=== PATIENT | female | born 1985 | race Caucasian/White ===

== ENCOUNTER → 2017-09-27 | Outpatient (CLI) | payer BC | END | disposition home or self-care (01) | LOC: LABWHC1 14:18 | PROVIDERS: ATTEND Obstetrics & Gynecology Maternal & Fetal Medicine | DX: O09.291 Supervision of pregnancy with other poor reproductive or obstetric history, first trimester (principal); Z3A.00 Weeks of gestation of pregnancy not specified | CPT/HCPCS: 36415; 82105; 82677; 84702; 86336 ==

== ENCOUNTER → 2017-12-23 | Outpatient (CLI) | payer BC ==
[2017-12-23 18:42] LABS: Hemoglobin A1C 4.7 % (4.0-6.0)
== END | disposition home or self-care (01) ==
LOC: LABWHC1 09:39
PROVIDERS: ATTEND Obstetrics & Gynecology Maternal & Fetal Medicine
DX: O24.410 Gestational diabetes mellitus in pregnancy, diet controlled (principal)
CPT/HCPCS: 36415; 82947; 83036

== ENCOUNTER 2018-03-06 05:28 | Inpatient (IN) | payer BC ==
--- NOTE | 2018-03-05 16:54 | P.HPOB ---
History of Present Illness H&P Date: 03/05/18 Chief Complaint: Repeat with tubal ligation This is a 32-year-old female 2 para 1 with an estimated date of confinement of 03/10/2018, estimated gestational age of 39-4/7 weeks, who presents to labor and delivery for scheduled repeat section with bilateral partial salpingectomy for family planning. Her course has been complicated by gestational diabetes controlled with diet. She does have a history of severe preeclampsia with her first and did deliver at 31 weeks. Her blood pressures have been normal throughout this . She admits to good movement and complaints of irregular contractions. labs: Hepatitis B surface antigen-negative RPR-nonreactive Rubella-immune Blood type-A+ Antibody screen-negative Hemoglobin-14.4 Random glucose-93 Integrated screen-negative Obstetrical ultrasound-normal anatomy One hour Glucola-177 Three-hour Glucola-abnormal Group B streptococcus-negative Obstetrical history: . History of 1 delivery at 31 weeks due to severe preeclampsia. Gynecologic history: No history of sexual transmitted diseases. Social history: She is . 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 Review of Systems Constitutional: Denies chills, Denies fever Eyes: denies blurred vision, denies pain Ears, nose, mouth and throat: Denies headache, Denies sore throat Cardiovascular: Denies chest pain, Denies shortness of breath Respiratory: Denies cough Gastrointestinal: Denies abdominal pain, Denies diarrhea, Denies nausea, Denies vomiting Genitourinary: Reports pelvic pain, Reports Musculoskeletal: Reports low back pain Integumentary: Denies pruritus, Denies rash Neurological: Denies numbness, Denies weakness Past Medical History Additional Past Medical History / Comment(s): Gestational diabetes. CELIAC DISEASE. PRE AND POST ECLAMPSIA WITH LAST History of Any Multi-Drug Resistant Organisms: None Reported Past Surgical History: Section, Cholecystectomy Additional Past Surgical History / Comment(s): [place] teeth Past Anesthesia/Blood Transfusion Reactions: Postoperative Nausea & Vomiting ( PONV) Past Psychological History: No Psychological Hx Reported Smoking Status: Never smoker Past Alcohol Use History: None Reported Past Drug Use History: None Reported - Past Family History Father Family Medical History: Diabetes Mellitus Medications and Allergies Home Medications Medication Instructions Recorded Confirmed Type Pnv,Calcium 72/Iron/Folic Acid 1 each PO DAILY 11/04/15 03/02/18 History [ Plus Tablet] Aspirin EC [Ecotrin Low Dose] 81 mg PO DAILY 03/02/18 03/02/18 History Allergies Allergy/AdvReac Type Severity Reaction Status Date / Time gluten Allergy CELIAC Verified 03/02/18 14:12 Sulfa (Sulfonamide Allergy Rash/Hives Verified 03/02/18 14:11 Antibiotics) wheat Allergy CELIAC Verified 03/02/18 14:12 Exam Osteopathic Statement: *. No significant issues noted on an osteopathic structural exam other than those noted in the History and Physical/Consult. HEENT: Within normal limits Heart: Regular rate and rhythm Lungs: Clear to auscultation bilaterally Abdomen: Cervix: 1 cm/60%/-3 heart tones: 140s by Doppler Extremities: Negative Homans Assessment and Plan (1) 39 weeks gestation of Status: Acute Code(s): Z3A.39 - 39 WEEKS GESTATION OF SNOMED Code( s): 92279862 (2) Family planning Status: Acute Code(s): Z30.09 - ENCOUNTER FOR OT GENERAL CNSL AND ADVICE ON CONTRACEPTION SNOMED Code(s): 537816085 Plan: Proceed with repeat section with bilateral partial salpingectomy. I have discussed the risks, benefits, and alternative therapies for the above- mentioned procedure and for both sedation/anesthesia as well as necessary blood products administration, if indicated, as they pertain to this patient. The patient has indicated her understanding and acceptance of the risks and procedures discussed.
[2018-03-06] MEDS ORDERED: LIDOCAINE 1% 20 ML VIAL (10MG/ML) FOR IV START INTRADERMA PRN (05:36)
[2018-03-06] MEDS ORDERED: LACTATED RINGERS 1,000 ML IV ONE (05:36)
[2018-03-06] MEDS ORDERED: ceFAZolin IN SWFI 2 GM/20 ML SYRINGE IVP ONE (05:36)
[2018-03-06] MEDS ORDERED: CITRIC ACID-SODIUM CITRATE 15 ML CUP PO ONE (05:36)
[2018-03-06] MEDS ORDERED: LACTATED RINGERS 1,000 ML IV SCH (05:36)
[2018-03-06 05:43] LABS: Glucose,Whole Blood 89 mg/dL (75-99)
[2018-03-06 05:50] LABS: Basophils % (A) 0 %; Eosinophils # (A) 0.1 k/uL (0-0.7); Eosinophils % (A) 1 %; HCT 42.6 % (34.0-46.0); HGB 14.5 gm/dL (11.4-16.0); Lymphocytes # (A) 2.1 k/uL (1.0-4.8); Lymphocytes % (A) 18 %; MCH 29.7 pg (25.0-35.0); MCV 87.4 fL (80.0-100.0); Mean Platelet Volume 7.1; Monocytes # (A) 0.5 k/uL (0-1.0); Monocytes % (A) 4 %; Neutrophils # (A) 9.2 k/uL (1.3-7.7); Neutrophils % (A) 77 %; Platelet Count 195 k/uL (150-450); RBC 4.87 m/uL (3.80-5.40); RDW 14.8 % (11.5-15.5)
[2018-03-06 05:56] VITALS: BMI 36.6
[2018-03-06] MEDS ORDERED: ePHEDrine SULFATE/0.9% NACL/PF 50 MG/5 ML SYRINGE IV ONE (06:57)
[2018-03-06] MEDS ORDERED: MORPHINE SULFATE (PF) 0.3 MG/0.3 ML SYR ONE (06:57)
[2018-03-06] MEDS ORDERED: KETOROLAC 30 MG/ML 1 ML VIAL ONE (06:57)
[2018-03-06] MEDS ORDERED: DEXAMETHASONE SOD PHOS (MDV) 100 MG/10 ML VIAL ONE (06:57)
[2018-03-06] MEDS ORDERED: OXYTOCIN 10 UNIT/ML 1 ML VIAL ONE (06:57)
[2018-03-06] MEDS ORDERED: NALBUPHINE 10 MG/ML VIAL (10ML MDV) ONE (06:57)
--- NOTE | 2018-03-06 07:49 | P.OP ---
Date of Procedure: 03/06/18 Preoperative Diagnosis: 1. Intrauterine at 39-2/7 weeks 2. Previous section 3. Family planning 4. Gestational [id number]. Postoperative Diagnosis: Same Procedure(s) Performed: Repeat low transverse section Bilateral partial salpingectomy Anesthesia: spinal (Duramorph) Surgeon: Juanis Posada Internal Sales Engineer #1: Peterson De Jesus Estimated Blood Loss (ml): 600 Pathology: other (Placenta, portions of right and left fallopian tubes) Condition: stable Disposition: floor Indications for Procedure: This is a 32-year-old female 2 para 1 at 39-3/7 weeks who presents for repeat section with bilateral partial salpingectomy. I have discussed the risks, benefits, and alternative therapies for the above- mentioned procedure and for both sedation/anesthesia as well as necessary blood products administration, if indicated, as they pertain to this patient. The patient has indicated her understanding and acceptance of the risks and procedures discussed. Operative Findings: A viable male infant is noted in the vertex presentation with scores of 8 at 1 minute and 9 at 5 minutes and weight of 8 lbs. 4 oz. Normal uterus tubes and ovaries are noted. An omental adhesion is noted to the anterior abdominal wall in the midline near the umbilicus. Description of Procedure: The patient is taken to the operating room where she is placed in the dorsal supine position with leftward tilt after spinal Duramorph anesthesia is given. She is prepped and draped in the normal sterile fashion. Skin was tested and found to be adequately anesthetized. A Pfannenstiel skin incision was made with a scalpel through the previous laparotomy scar. A second knife was used to carry the incision down to the underlying layer of fascia. The fascia was nicked in the midline with a scalpel and then extended laterally bilaterally with Auguste scissors. The anterior lip of the fascia was grasped with 2 Aruna clamps and then dissected off the underlying rectus muscle in the midline with Auguste scissors. The inferior aspect of the fascial incision was grasped with 2 Aruna clamps and dissected off the underlying rectus muscle and the midline with Auguste scissors. Next the peritoneum layer was tented up with 2 hemostats and then entered sharply with the scalpel. The incision is extended superiorly and inferiorly with Metzenbaum scissors. Next a DeLee retractor is placed. The vesicouterine peritoneum is entered sharply with Metzenbaum scissors and extended laterally bilaterally with Metzenbaum scissors and then the bladder flap is pushed inferiorly. The lower uterine segment is incised in transverse fashion with the scalpel and then bluntly entered with a hemostat. Thin meconium fluid is noted. The incision was then extended laterally bilaterally with 2 fingers. Next the infant's head is delivered through the incision. Nose and mouth are bulb suctioned. The remainder of the is easily delivered and placed on mother's abdomen. Cord is clamped and cut. Infant is taken to warmer by nursing staff. Uterine fundus is gently massaged and placenta is delivered manually. Uterus is exteriorized and cleared of all clots and debris. Uterine incision is closed with 0 Vicryl suture in a running locked fashion. A second layer of 0 Vicryl suture is used in a running fashion for hemostasis. Next attention is turned to the tubes. The right fallopian tube is grasped in the midportion with a hemostat. The mesosalpinx is entered with Bovie cautery. 0 Vicryl suture is tied 2 times around both the proximal and distal portions of the tube. The knuckle of tube was then removed with Metzenbaum scissors. The ends of the tube were then cauterized with Bovie cautery. Excellent hemostasis is noted. The same procedure is carried out on the left fallopian tube. Once adequate hemostasis as assured, the vesicouterine peritoneum is reapproximated with 2-0 Vicryl suture in a running fashion. Posterior cul-de-sac is suctioned of all clots and debris. Uterus is returned to the abdomen. Incision is noted to be hemostatic. Both tubal sites are noted to be hemostatic. There is noted to be an omental adhesion to the anterior abdominal wall. Peritoneal layer is closed with 0 Vicryl suture in a running fashion. Muscle layer is reapproximated with 0 Vicryl suture in interrupted fashion. Fascia layer is then closed with 0 PDS suture with 2 sutures meeting in the midline and the knots buried in either side and in the midline. The subcutaneous tissue was then closed with 2-0 Vicryl suture. Skin layer was then closed with tarsha. All sponge and needle counts are correct. The patient is taken to recovery room in stable condition.
[2018-03-06] MEDS ORDERED: OXYTOCIN 20 UNITS/1000 ML NS 1,000 ML IV SCH (07:58)
[2018-03-06] MEDS ORDERED: diphenhydrAMINE 50 MG CAP PO PRN (07:58)
[2018-03-06] MEDS ORDERED: ONDANSETRON 4 MG/2 ML VIAL IVP PRN (07:58)
[2018-03-06] MEDS ORDERED: ACETAMINOPHEN TAB 325 MG TAB PO PRN (07:58)
[2018-03-06] MEDS ORDERED: METOCLOPRAMIDE 5 MG/ML 2 ML VIAL IVP PRN (07:58)
[2018-03-06] MEDS ORDERED: ZOLPIDEM 5 MG TAB PO PRN (07:58)
[2018-03-06] MEDS ORDERED: diphenhydrAMINE 25 MG CAP PO PRN (07:58)
[2018-03-06] MEDS ORDERED: MORPHINE SULFATE 4 MG/ML SYRINGE IVP PRN (07:58)
[2018-03-06] MEDS ORDERED: NALOXONE 0.4 MG/ML 1 ML VIAL IV PRN ×2 (07:58)
[2018-03-06] MEDS ORDERED: diphenhydrAMINE 50 MG/ML 1 ML VIAL IVP PRN (07:58)
[2018-03-06] MEDS ORDERED: HYDROcodone/APAP 5-325MG 1 EACH TAB PO PRN (07:58)
[2018-03-06] MEDS: SENNOSIDES-DOCUSATE SODIUM 1 EACH TAB PO SCH (09:05)
[2018-03-06] MEDS: LACTATED RINGERS 1,000 ML IV SCH ×2 (09:06→11:40)
[2018-03-06] MEDS: diphenhydrAMINE 50 MG/ML 1 ML VIAL IVP PRN ×2 (09:54→16:58)
[2018-03-06 13:14] LABS: Hemoglobin A1C 5.3 % (4.0-6.0)
[2018-03-06] MEDS: KETOROLAC 30 MG/ML 1 ML VIAL IVP PRN (13:33)
[2018-03-07] MEDS: KETOROLAC 30 MG/ML 1 ML VIAL IVP PRN ×2 (00:05→07:56)
[2018-03-07] MEDS: LACTATED RINGERS 1,000 ML IV SCH ×2 (01:06→10:15)
[2018-03-07] MEDS: SENNOSIDES-DOCUSATE SODIUM 1 EACH TAB PO SCH ×3 (01:06→20:25)
--- NOTE | 2018-03-07 06:22 | P.PN ---
Progress Note - Text Progress Note Date: 03/07/18 32-year-old female status post section with Duramorph spinal. Postop day #1. Patient has no complaints, no pruritus, and bleeding well, tolerating diet. Patient has no motor/sensory deficits
[2018-03-07 07:42] LABS: Basophils % (A) 0 %; Eosinophils % (A) 0 %; HCT 37.2 % (34.0-46.0); HGB 12.4 gm/dL (11.4-16.0); Lymphocytes # (A) 1.8 k/uL (1.0-4.8); Lymphocytes % (A) 15 %; MCH 29.6 pg (25.0-35.0); MCHC 33.2 g/dL (31.0-37.0); MCV 89.1 fL (80.0-100.0); Mean Platelet Volume 7.5; Monocytes # (A) 0.5 k/uL (0-1.0); Monocytes % (A) 4 %; Neutrophils # (A) 10.1 k/uL (1.3-7.7); Neutrophils % (A) 80 %; Platelet Count 181 k/uL (150-450); RBC 4.18 m/uL (3.80-5.40); RDW 14.8 % (11.5-15.5); WBC 12.6 k/uL (3.8-10.6)
--- NOTE | 2018-03-07 08:20 | P.PNOBGPC ---
Subjective - Subjective Principal diagnosis: Status post repeat section with tubal postoperative day #1 Interval history: Patient is doing okay. She is ambulating. She is passing some flatus but no bowel movement yet. Pain is been fairly well-controlled with Duramorph and Toradol. She is working on breast-feeding but having some difficulty. Patient reports: Reports appetite normal, Reports voiding normally, Reports pain well controlled, Reports ambulating normally : doing well Objective - Vital Signs Latest vital signs: Vital Signs Temp Pulse Resp BP Pulse Ox 03/07/18 06:00 16 03/07/18 04:00 98.3 F 70 16 125/72 97 03/07/18 02:00 16 03/07/18 00:00 98.2 F 65 16 137/74 100 03/06/18 22:00 16 100 03/06/18 20:00 98.5 F 68 16 134/79 98 03/06/18 18:00 16 03/06/18 17:04 98.2 F 84 16 139/85 99 03/06/18 16:00 16 99 03/06/18 14:00 16 98 03/06/18 12:12 21 L 03/06/18 12:00 99 F 70 16 131/71 97 03/06/18 10:58 16 98 03/06/18 09:47 96.9 F L 74 16 146/70 99 03/06/18 09:17 96.9 F L 100 16 144/87 99 03/06/18 08:58 14 97 03/06/18 08:47 65 16 137/72 97 03/06/18 08:32 82 16 126/73 98 Intake and Output 03/06/18 03/07/18 03/07/18 22:59 06:59 14:59 Output Total 650 700 Balance -650 -700 Output: Urine 650 700 Uretheral (Schmidt) 450 Other: # Voids 1 2 - Exam Extremities: Present: normal. Absent: tenderness Abdomen: Present: normal appearance, soft (Faint bowel sounds 4). Absent: distention, tenderness Incision: Present: normal, dry, intact. Absent: erythematous Uterus: Present: normal, firm. Absent: tenderness - Labs Labs: Abnormal Lab Results - Last 24 Hours (Table) 03/07/18 Range/Units 07:24 WBC 12.6 H (3.8-10.6) k/uL Neutrophils # 10.1 H (1.3-7.7) k/uL Assessment and Plan Assessment: Impression is status post repeat section with tubal ligation postoperative day #1. (1) 39 weeks gestation of Current Visit: No Status: Acute Code(s): Z3A.39 - 39 WEEKS GESTATION OF SNOMED Code(s): 61176445 (2) Family planning Current Visit: No Status: Acute Code(s): Z30.09 - ENCOUNTER FOR OTH GENERAL CNSL AND ADVICE ON CONTRACEPTION SNOMED Code(s): 659070777 Plan: Plan is to continue with postoperative care today. Will slowly advance diet as tolerated. Patient encouraged to ambulate. Will switch to oral pain medications today.
[2018-03-07] MEDS: IBUPROFEN 600 MG TAB PO PRN (14:33)
[2018-03-07] MEDS: HYDROcodone/APAP 7.5-325MG 1 EACH TAB PO PRN (16:38)
[2018-03-08] MEDS: IBUPROFEN 600 MG TAB PO PRN ×3 (02:49→14:18)
[2018-03-08] MEDS: SENNOSIDES-DOCUSATE SODIUM 1 EACH TAB PO SCH ×2 (07:44→20:17)
--- NOTE | 2018-03-08 08:56 | P.DS ---
Providers Date of admission: 03/06/18 05:28 Expected date of discharge: 03/08/18 Attending physician: Juanis Posada Primary care physician: Juanis Posada - Discharge Diagnosis(es) (1) 39 weeks gestation of Current Visit: No Status: Acute (2) Family planning Current Visit: No Status: Acute Hospital Course: This is a 32-year-old female 2 para 1 at 39-3/7 weeks who presented for scheduled repeat section. She underwent repeat low transverse section with bilateral partial salpingectomy on 03/06/2018 and delivered a viable male infant in the vertex presentation with scores of 8 at 1 minute and 9 at 5 minutes and infant weight of 8 lbs. 4 oz. Her course has been essentially uncomplicated. She is working on breast- feeding. She is frustrated that her baby is not latching well and has been pumping her breastmilk to feed in a bottle. Her pain is fairly well controlled with ibuprofen and [place]. Lochia is decreasing. She is passing flatus but no bowel movement yet. She thinks she would like to go home later today but will stay over tonight if she doesn't feel well later today. Vital signs are stable. Abdomen is soft with positive bowel sounds 4. Incision is clean dry and intact. Extremities show negative Homans. Impression is status post repeat section with bilateral partial salpingectomy postoperative day # 2. Plan is to potentially discharge home later today. Routine and postoperative instructions are given. She will be given a prescription for ibuprofen and [place] along with a prescription for a breast pump. She was counseled regarding narcotic use and consent form was signed. She is advised to follow up in the office in 1 week for a postoperative check. Chauncey will be removed and Steri-Strips placed prior to discharge. She is advised to call the office if she has any further questions or concerns prior to her appointment time. Procedures: Repeat low transverse section with bilateral partial salpingectomy on 03/06/2018 Patient Condition at Discharge: Stable Plan - Discharge Summary Discharge Rx Participant: No New Discharge Prescriptions: New HYDROcodone/APAP 5-325MG [[place] 5-325] 1 each PO Q4HR PRN #42 tab PRN Reason: Moderate Pain Ibuprofen [Motrin] 600 mg PO Q6HR PRN #60 tab PRN Reason: Mild Pain Or Fever >= 100.5 Continue Pnv,Calcium 72/Iron/Folic Acid [ Plus Tablet] 1 each PO DAILY Discharge Medication List Pnv,Calcium 72/Iron/Folic Acid [ Plus Tablet] 1 each PO DAILY 11/04/15 [ History] HYDROcodone/APAP 5-325MG [[place] 5-325] 1 each PO Q4HR PRN #42 tab 03/08/18 [Rx] Ibuprofen [Motrin] 600 mg PO Q6HR PRN #60 tab 03/08/18 [Rx] Follow up Appointment(s)/Referral(s): Juanis Posada DO [Primary Care Provider] - 1 Week Activity/Diet/Wound Care/Special Instructions: Instructions 1. Do not begin any exercise program for 3 weeks. 2. Do not resume sexual relations for 3 weeks or longer if uncomfortable. 3. You may take tub baths or showers at any time. 4. You may use tampons if desired after 3 weeks. 5. Keep the area of episiotomy (stitches) clean and dry. 6. If you are not nursing, wear a good fitting, supportive bra during the day and limit fluid intake for at least 1 week to prevent breast engorgement. 7. Call the office, [phone], within the next week to make appointment for your 6 week checkup if it has not already been made. 8. Report any of the following occurrences to the doctor promptly: a. Heavy, excessive bleeding b. Chills, fever c. Burning or frequency of urination d. Pain or redness and breasts if nursing e. Increasing pain or swelling in episiotomy (stitches). In addition to the above instructions, the following additional should be followed: 1. No heavy lifting or straining (exercising) until after 6 week checkup. 2. Keep abdominal incision clean and dry: You may wear a dressing if more comfortable. 3. Make office appointment for 10 days after going home or as instructed by her doctor. Discharge Disposition: HOME SELF-CARE
[2018-03-08] MEDS: HYDROcodone/APAP 7.5-325MG 1 EACH TAB PO PRN (22:47)
[2018-03-09 03:05] VITALS: PULSE 84; TEMP 97.8
[2018-03-09] MEDS: SENNOSIDES-DOCUSATE SODIUM 1 EACH TAB PO SCH (08:08)
[2018-03-09] MEDS: IBUPROFEN 600 MG TAB PO PRN (08:09)
[2018-03-09 10:39] VITALS: BP 131/79; RESP 18
== END 2018-03-09 10:20 | disposition home or self-care (01) | DRG 766 ==
LOC: 4FBP 05:28
PROVIDERS: ADMIT Obstetrics & Gynecology; ATTEND Obstetrics & Gynecology
PROC: 0UB70ZZ Excision of Bilateral Fallopian Tubes, Open Approach (ICD-10-PCS; principal; 2018-03-06 07:12)
PROC: 10D00Z1 Extraction of Products of Conception, Low, Open Approach (ICD-10-PCS; principal; 2018-03-06 07:12)
DX: O34.211 Maternal care for low transverse scar from previous cesarean delivery (principal); Z37.0 Single live birth; O24.420 Gestational diabetes mellitus in childbirth, diet controlled; Z90.49 Acquired absence of other specified parts of digestive tract; Z83.3 Family history of diabetes mellitus; Z3A.39 39 weeks gestation of pregnancy; Z79.82 Long term (current) use of aspirin; Z88.1 Allergy status to other antibiotic agents; Z88.2 Allergy status to sulfonamides; Z91.018 Allergy to other foods; Z30.2 Encounter for sterilization
CPT/HCPCS: 83036; 85025; 86850; 86900; 86901; 88302; 88307; 94760

== ENCOUNTER 2018-03-20 15:37 | Emergency (ER) | payer BC ==
[2018-03-20 16:16] VITALS: RESP 18
[2018-03-20] MEDS ORDERED: ACETAMINOPHEN IV (For NPO) 1,000 MG in EMPTY BAG 1 BAG IVPB STA (16:30)
[2018-03-20] MEDS ORDERED: SODIUM CHLORIDE 0.9% 1,000 ML IV STA (16:30)
--- NOTE | 2018-03-20 16:34 | ED ---
General Adult HPI - General Chief complaint: Fever Stated complaint: high heart rate-sent by [employer] Word Now Time Seen by Provider: 03/20/18 16:26 Source: patient, RN notes reviewed Mode of arrival: ambulatory Limitations: no limitations - History of Present Illness Initial comments: Patient's a 32-year-old female who presents emergency room today with chief complaint mastitis to the left breast. Patient states that symptoms started tonight. States she's had some local tenderness to the area. Patient does admit to headache. She states she went to urgent care earlier today and was advised come here to emergency room for further evaluation. Patient currently denies any other complaints. Patient does admit that she ibuprofen approximately for half hours ago. Patient denies any recent shortness of breath , chest pain, back pain, abdominal pain, nausea or vomiting, numbness or tingling, visual changes, or any other complaints. - Related Data Home Medications Medication Instructions Recorded Confirmed Pnv,Calcium 72/Iron/Folic Acid 1 each PO DAILY 11/04/15 03/06/18 [ Plus Tablet] Previous Rx's Medication Instructions Recorded HYDROcodone/APAP 5-325MG [[place] 1 each PO Q4HR PRN #42 tab 03/08/18 5-325] Ibuprofen [Motrin] 600 mg PO Q6HR PRN #60 tab 03/08/18 Acetaminophen Tab [Tylenol] 1,000 mg PO TID 5 Days tablet 03/20/18 Cephalexin [Keflex] 500 mg PO Q12HR 10 Days cap 03/20/18 Ibuprofen [Motrin] 600 mg PO Q6HR PRN #40 day 03/20/18 Allergies Allergy/AdvReac Type Severity Reaction Status Date / Time gluten Allergy CELIAC Verified 03/20/18 16:17 Sulfa (Sulfonamide Allergy Rash/Hives Verified 03/20/18 16:17 Antibiotics) wheat Allergy CELIAC Verified 03/20/18 16:17 Review of Systems ROS Statement: Those systems with pertinent positive or pertinent negative responses have been documented in the HPI. ROS Other: All systems not noted in ROS Statement are negative. Past Medical History Additional Past Medical History / Comment(s): Gestational diabetes. CELIAC DISEASE. PRE AND POST ECLAMPSIA WITH LAST History of Any Multi-Drug Resistant Organisms: None Reported Past Surgical History: Section, Cholecystectomy Additional Past Surgical History / Comment(s): [place] teeth Past Anesthesia/Blood Transfusion Reactions: Postoperative Nausea & Vomiting ( PONV) Past Psychological History: No Psychological Hx Reported Smoking Status: Never smoker Past Alcohol Use History: None Reported Past Drug Use History: None Reported - Past Family History Father Family Medical History: Diabetes Mellitus General Exam - General Exam Comments Initial Comments: General: The patient is awake and alert, in no distress, and does not appear acutely ill. Eye: Pupils are equal, round and reactive to light, extra-ocular movements are intact. No nystagmus. There is normal conjunctiva bilaterally. No signs of icterus. Ears, nose, mouth and throat: There are moist mucous membranes and no oral lesions. Neck: The neck is supple, there is no tenderness or JVD. Cardiovascular: There is a regular rate and rhythm. No murmur, rub or gallop is appreciated. Respiratory: Lungs are clear to auscultation, respirations are non-labored, breath sounds are equal. No wheezes, stridor, rales, or rhonchi. Musculoskeletal: Normal ROM, no tenderness. Strength 5/5. Sensation intact. Pulses equal bilaterally 2+. Neurological: A&O x 3. CN II-XII intact, There are no obvious motor or sensory deficits. Coordination appears grossly intact. Speech is normal. Skin: Skin is warm and dry and no rashes or lesions are noted. Psychiatric: Cooperative, appropriate mood & affect, normal judgment. 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 Mild redness and swelling to the left breast. Limitations: no limitations Course Vital Signs 03/20/18 03/20/18 03/20/18 16:13 16:54 17:26 Temperature 103 F H 101.8 F H Pulse Rate 136 H 120 H 115 H Respiratory 18 18 Rate Blood Pressure 132/81 139/90 O2 Sat by Pulse 98 98 Oximetry 03/20/18 17:47 Temperature Pulse Rate 109 H Respiratory 18 Rate Blood Pressure 122/76 O2 Sat by Pulse 98 Oximetry Medical Decision Making - Medical Decision Making Patient's labs been reviewed does show 14,000 white count. Patient did have a temperature 100.3F here in emergency room and was tachycardic. Patient's fever has improved here in the emergency room along with a heart rate. Patient is resting comfortably and states she is feeling better. Patient does have mastitis on clinical exam. She has had this once in the past with a previous . Patient feels comfortable being discharged and continuing outpatient antibiotics. Has been given dose of Rocephin here in the emergency room. She is advised close follow-up over the next 2 days returning if any symptoms increase or worsen. Advised continue Tylenol/ibuprofen for fever control. Will be continued on Keflex at home for infection. - Lab Data Result diagrams: 03/20/18 16:51 03/20/18 16:51 Lab Results 03/20/18 03/20/18 03/20/18 Range/Units 16:51 16:51 16:51 WBC 14.1 H (3.8-10.6) k/uL RBC 4.75 (3.80-5.40) m/uL Hgb 13.7 (11.4-16.0) gm/dL Hct 42.2 (34.0-46.0) % MCV 88.9 (80.0-100.0) fL MCH 28.9 (25.0-35.0) pg MCHC 32.5 (31.0-37.0) g/dL RDW 13.9 (11.5-15.5) % Plt Count 311 (150-450) k/uL Neutrophils % 90 % Lymphocytes % 5 % Monocytes % 2 % Eosinophils % 2 % Basophils % 0 % Neutrophils # 12.7 H (1.3-7.7) k/uL Lymphocytes # 0.7 L (1.0-4.8) k/uL Monocytes # 0.2 (0-1.0) k/uL Eosinophils # 0.3 (0-0.7) k/uL Basophils # 0.0 (0-0.2) k/uL PT (9.0-12.0) sec INR (<1.2) APTT (22.0-30.0) sec Sodium 139 (137-145) mmol/L Potassium 4.3 (3.5-5.1) mmol/L Chloride 108 H (98-107) mmol/L Carbon Dioxide 21 L (22-30) mmol/L Anion Gap 10 mmol/L BUN 15 (7-17) mg/dL Creatinine 1.00 (0.52-1.04) mg/dL Est GFR (CKD-EPI)AfAm 86 (>60 ml/min/1.73 sqM) Est GFR (CKD-EPI)NonAf 74 (>60 ml/min/1.73 sqM) Glucose 97 (74-99) mg/dL Plasma Lactic Acid Ji 1.2 (0.7-2.0) mmol/L Calcium 9.4 (8.4-10.2) mg/dL Total Bilirubin 1.4 H (0.2-1.3) mg/dL AST 38 H (14-36) U/L ALT 56 H (9-52) U/L Alkaline Phosphatase 99 (38-126) U/L Total Protein 6.7 (6.3-8.2) g/dL Albumin 3.7 (3.5-5.0) g/dL 03/20/18 Range/Units 16:51 WBC (3.8-10.6) k/uL RBC (3.80-5.40) m/uL Hgb (11.4-16.0) gm/dL Hct (34.0-46.0) % MCV (80.0-100.0) fL MCH (25.0-35.0) pg MCHC (31.0-37.0) g/dL RDW (11.5-15.5) % Plt Count (150-450) k/uL Neutrophils % % Lymphocytes % % Monocytes % % Eosinophils % % Basophils % % Neutrophils # (1.3-7.7) k/uL Lymphocytes # (1.0-4.8) k/uL Monocytes # (0-1.0) k/uL Eosinophils # (0-0.7) k/uL Basophils # (0-0.2) k/uL PT 9.9 (9.0-12.0) sec INR 1.0 (<1.2) APTT 26.4 (22.0-30.0) sec Sodium (137-145) mmol/L Potassium (3.5-5.1) mmol/L Chloride (98-107) mmol/L Carbon Dioxide (22-30) mmol/L Anion Gap mmol/L BUN (7-17) mg/dL Creatinine (0.52-1.04) mg/dL Est GFR (CKD-EPI)AfAm (>60 ml/min/1.73 sqM) Est GFR (CKD-EPI)NonAf (>60 ml/min/1.73 sqM) Glucose (74-99) mg/dL Plasma Lactic Acid Ji (0.7-2.0) mmol/L Calcium (8.4-10.2) mg/dL Total Bilirubin (0.2-1.3) mg/dL AST (14-36) U/L ALT (9-52) U/L Alkaline Phosphatase (38-126) U/L Total Protein (6.3-8.2) g/dL Albumin (3.5-5.0) g/dL Disposition Clinical Impression: Mastitis Disposition: HOME SELF-CARE Condition: Good Instructions: Mastitis (ED) Additional Instructions: Please use medication as discussed. Please follow-up with family doctor in the next 2 days of symptoms have not improved. Please return to emergency room if the symptoms increase or worsen or for any other concerns. Prescriptions: Acetaminophen Tab [Tylenol] 1,000 mg PO TID 5 Days tablet Cephalexin [Keflex] 500 mg PO Q12HR 10 Days cap Ibuprofen [Motrin] 600 mg PO Q6HR PRN #40 day PRN Reason: Pain Is patient prescribed a controlled substance at d/c from ED?: No Referrals: Anna Calderon MD [Primary Care Provider] - 1-2 days Time of Disposition: 17:59
[2018-03-20 17:06] LABS: Basophils % (A) 0 %; Eosinophils # (A) 0.3 k/uL (0-0.7); Eosinophils % (A) 2 %; HCT 42.2 % (34.0-46.0); HGB 13.7 gm/dL (11.4-16.0); Lymphocytes # (A) 0.7 k/uL (1.0-4.8); Lymphocytes % (A) 5 %; MCH 28.9 pg (25.0-35.0); MCHC 32.5 g/dL (31.0-37.0); MCV 88.9 fL (80.0-100.0); Mean Platelet Volume 6.8; Monocytes # (A) 0.2 k/uL (0-1.0); Monocytes % (A) 2 %; Neutrophils # (A) 12.7 k/uL (1.3-7.7); Neutrophils % (A) 90 %; Platelet Count 311 k/uL (150-450); RBC 4.75 m/uL (3.80-5.40); RDW 13.9 % (11.5-15.5); WBC 14.1 k/uL (3.8-10.6)
[2018-03-20 17:16] LABS: Partial Thromboplastin Time 26.4 sec (22.0-30.0); Prothrombin Time 9.9 sec (9.0-12.0)
[2018-03-20 17:28] LABS: Albumin 3.7 g/dL (3.5-5.0); Calcium 9.4 mg/dL (8.4-10.2); Potassium 4.3 mmol/L (3.5-5.1); Total Bilirubin 1.4 mg/dL (0.2-1.3); Total Protein 6.7 g/dL (6.3-8.2)
[2018-03-20] MEDS ORDERED: IBUPROFEN 800 MG TAB PO STA (17:58)
[2018-03-20] MEDS ORDERED: cefTRIAXone IN SWFI 1,000 MG/10 ML SYRINGE IVP STA (17:58)
[2018-03-20 18:48] VITALS: BP 118/75; PULSE 102; TEMP 99.3
== END 2018-03-20 19:02 | disposition home or self-care (01) ==
LOC: EC 15:37
DX: N61.0 Mastitis without abscess (principal); R51 Headache; R00.0 Tachycardia, unspecified; Z91.018 Allergy to other foods; Z88.2 Allergy status to sulfonamides
CPT/HCPCS: 99283; 96374; 96375; 96361; 36415; 93005; 80053; 83605; 85025; 85610; 85730; 87040; J0696; J0131

== ENCOUNTER → 2019-05-24 | Outpatient (CLI) | payer BC ==
--- NOTE | 2019-05-24 16:13 | US ---
EXAMINATION TYPE: US kidneys/renal and bladder DATE OF EXAM: 05/24/2019 COMPARISON: CT 2010 CLINICAL HISTORY: Hematuria, R31.9. Hematuria, back pain, history of kidney stones EXAM MEASUREMENTS: Right Kidney: 10.5 x 5.0 x 4.4 cm Left Kidney: 10.7 x 5.5 x 4.3 cm Right Kidney: multiple tiny scattered echogenic foci, no hydronephrosis Left Kidney: multiple tiny scattered echogenic foci, no hydronephrosis Bladder: wnl Bilateral Jets seen: yes There is no evidence for hydronephrosis at this point in time. No nephrolithiasis is seen. No roque s are identified. The urinary bladder is satisfactorily distended. Bilateral ureteral jets are seen . IMPRESSION: Tiny calculi on 2012 CT less well seen on ultrasound but likely present bilaterally. No h ydronephrosis is noted bilaterally.
== END | disposition home or self-care (01) ==
LOC: RADUSWWP 15:36
PROVIDERS: ATTEND Family Medicine
DX: R31.9 Hematuria, unspecified (principal)
CPT/HCPCS: 76770

== ENCOUNTER → 2019-07-05 | Outpatient (CLI) | payer BC ==
--- NOTE | 2019-07-06 07:27 | US ---
EXAMINATION TYPE: US pelvic complete DATE OF EXAM: 07/05/2019 COMPARISON: NONE CLINICAL HISTORY: R10.2 pelvic pain. Left pelvic pain TECHNIQUE: Transabdominal (TA) Date of LMP: 2 weeks ago EXAM MEASUREMENTS: Uterus: 10.0 x 3.8 x 5.7 cm Endometrial Stripe: 0.6 cm Right Ovary: 3.4 x 2.2 x 2.0 cm Left Ovary: 4.0 x 2.2 x 4.4 cm 1. Uterus: Anteverted wnl 2. Endometrium: appears wnl 3. Right Ovary: follicles noted 4. Left Ovary: follicles noted 5. Bilateral Adnexa: wnl 6. Posterior cul-de-sac: wnl IMPRESSION: 1. Normal pelvic ultrasound
== END | disposition home or self-care (01) ==
LOC: RADUSWWP 15:33
PROVIDERS: ATTEND Obstetrics & Gynecology
DX: R10.2 Pelvic and perineal pain (principal)
CPT/HCPCS: 76856

== ENCOUNTER → 2020-08-15 | Outpatient (CLI) | payer BC ==
--- NOTE | 2020-08-18 09:07 | USB ---
Reason for exam: clinical finding. History: Family history of breast cancer in maternal aunt at age 50. Indicated problem(s): lump or thickening in the right breast. Physical Findings: Nurse Summary: Patient complains of right breast lump x 1 month bilateral breast tenderness (nurse mj). US Breast Limited RT Right limited breast ultrasound including focal area of concern, retroareolar and axilla demonstrates a 2.0 x 1.1 x 2.0cm oval, solid lesion at 10 o'clock BB and a 1.0 x 0.5 x 0.8cm oval, solid lesion at the posterior nipple. Probable fibroadenoma. These results were verbally communicated with the patient and result sheet given to the patient on 08/15/20. ASSESSMENT: Probably benign, BI-RAD 3 RECOMMENDATION: Ultrasound of the right breast in 6 months.
== END | disposition home or self-care (01) ==
LOC: RADUSWWP 15:03
PROVIDERS: ATTEND Family Medicine
DX: N63.11 Unspecified lump in the right breast, upper outer quadrant (principal)

== ENCOUNTER 2022-05-11 08:33 | Day surgery (SDC) | payer BC ==
[~2022-05-11 08:33] MED LIST: LACTATED RINGERS 1,000 ML IV SCH; LIDOCAINE 1% (10MG/ML) FOR IV START INTRADERMA PRN
[2022-05-11 08:50] VITALS: RESP 16; TEMP 98.2
[2022-05-11] MEDS ORDERED: LACTATED RINGERS 1,000 ML IV ONE (09:00)
[2022-05-11] MEDS ORDERED: PROPOFOL 10 MG/ML 20 ML VIAL IV ONE (09:13)
[2022-05-11] MEDS ORDERED: fentaNYL (PF) 50 MCG/ML 2 ML AMP ONE (09:13)
--- NOTE | 2022-05-11 09:18 | P.GSHP ---
History of Present Illness H&P Date: 05/11/22 Chief Complaint: Change in bowel habits 36-year-old female here today for colonoscopy. Patient with history of celiac disease. She has intermittent diarrhea and constipation. Usually occurs when she is more nervous. Rare episodes of rectal bleeding. No family history of colon cancer. Past Medical History Past Medical History: GERD/Reflux Additional Past Medical History / Comment(s): Gestational diabetes, hx of kidney stones. CELIAC DISEASE. PRE AND POST ECLAMPSIA WITH first , migraines. + covid 01/19/22 History of Any Multi-Drug Resistant Organisms: None Reported Past Surgical History: Section, Cholecystectomy, Tubal Ligation Additional Past Surgical History / Comment(s): [place] teeth Past Anesthesia/Blood Transfusion Reactions: Postoperative Nausea & Vomiting (PONV) Smoking Status: Never smoker - Past Family History Father Family Medical History: Diabetes Mellitus Mother Additional Family Medical History / Comment(s): thyroid removed Medications and Allergies Home Medications Medication Instructions Recorded Confirmed Type ALPRAZolam [Xanax] 0.25 mg PO DAILY PRN 05/07/22 05/11/22 History Acetaminophen Tab [Tylenol] 1,000 mg PO TID PRN 05/07/22 05/11/22 History Ibuprofen [Motrin Ib] 600 mg PO DIRECTED 05/07/22 05/11/22 History Omeprazole 20 mg PO DAILY 05/07/22 05/11/22 History Rizatriptan Benzoate [Maxalt] 10 mg PO DIRECTED PRN 05/07/22 05/11/22 History Topiramate 50 mg PO BID 05/07/22 05/11/22 History Unk Otc Allergy Med 1 tab PO DAILY PRN 05/07/22 05/11/22 History Allergies Allergy/AdvReac Type Severity Reaction Status Date / Time gluten Allergy CELIAC Verified 05/11/22 08:54 Sulfa (Sulfonamide Allergy Rash/Hives Verified 05/11/22 08:54 Antibiotics) wheat Allergy CELIAC Verified 05/11/22 08:54 Surgical - Exam Vital Signs Temp Pulse Resp BP Pulse Ox 98.2 F 93 16 139/88 98 05/11/22 08:45 05/11/22 08:45 05/11/22 08:45 05/11/22 08:45 05/11/22 08:45 Physical exam: General: Well-developed, well-nourished HEENT: Normocephalic, sclerae nonicteric Abdomen: Nontender, nondistended Extremities: No edema Neuro: Alert and oriented Assessment and Plan (1) Change in bowel habits Narrative/Plan: Will proceed with colonoscopy. Current Visit: Yes Status: Acute Code(s): R19.4 - CHANGE IN BOWEL HABIT SNOMED Code(s): 452624546
--- NOTE | 2022-05-11 09:37 | P.PCN ---
Date of Procedure: 05/11/22 Procedure(s) Performed: PREOPERATIVE DIAGNOSIS: Change in bowel habits POSTOPERATIVE DIAGNOSIS: Small descending colon polyp PROCEDURE: Colonoscopy with snare polypectomy ANESTHESIA: MAC SURGEON: Reynold Calderon M.D. SPECIMENS: Descending colon polyp ENDOSCOPIC PROCEDURE: The patient was placed on the endoscopy table in the left decubitus position. The Olympus colonoscope was inserted into the anus and passed under direct visualization to the base of the cecum. The appendiceal orifice was visualized. From that point the scope was slowly withdrawn inspecting all surfaces carefully. There were no neoplastic inflammatory or polypoid lesions throughout the cecum, ascending, and transverse colon. In the descending colon a small polyp was seen and removed using the snare technique. The remainder of the descending sigmoid and rectum was normal. There was no visible diverticulosis. Digital rectal examination was normal. The patient was taken to the recovery room in stable condition per anesthesia guidelines. RECOMMENDATIONS: Resume diet. Await biopsy results to determine the timing the next colonoscopy.
[2022-05-11 09:53] VITALS: BP 115/78; PULSE 86
== END 2022-05-11 10:17 | disposition home or self-care (01) ==
LOC: ORWHC2ENDO 08:33
PROVIDERS: ATTEND Surgery
DX: D12.4 Benign neoplasm of descending colon (principal); K21.9 Gastro-esophageal reflux disease without esophagitis; K59.00 Constipation, unspecified; K62.5 Hemorrhage of anus and rectum; Z88.2 Allergy status to sulfonamides; Z79.1 Long term (current) use of non-steroidal anti-inflammatories (NSAID)
CPT/HCPCS: 81025; 88305; 45385; J3010; J2704

== ENCOUNTER 2023-10-06 13:20 | Emergency (ER) | payer BC ==
--- NOTE | 2023-10-06 13:34 | ED ---
Abdominal Pain HPI - General Chief Complaint: Abdominal Pain Stated Complaint: Abd/back pain blood in urine Time Seen by Provider: 10/06/23 13:32 Source: patient, RN notes reviewed Mode of arrival: ambulatory Limitations: no limitations - History of Present Illness Initial Comments: 37-year-old female presents emergency department chief complaint of flank pain and hematuria since tuesday. She has a history of kidney stones, and denies history of obstructive stones. She denies nausea, fevers, diarrhea. Patient states that she went to urgent care over the weekend where they took a urine sample from her and diagnosed her with a urinary tract infection and said that she likley has a kidney stone as well and was discharged with Flomax and an oral antibiotic. Patient states that her pain has worsened over the weekend and now her right flank is bothering her. - Related Data Home Medications Medication Instructions Recorded Confirmed ALPRAZolam [Xanax] 0.25 mg PO DAILY PRN 05/07/22 05/11/22 Acetaminophen Tab [Tylenol] 1,000 mg PO TID PRN 05/07/22 05/11/22 Ibuprofen [Motrin Ib] 600 mg PO DIRECTED 05/07/22 05/11/22 Omeprazole 20 mg PO DAILY 05/07/22 05/11/22 Rizatriptan Benzoate [Maxalt] 10 mg PO DIRECTED PRN 05/07/22 05/11/22 Topiramate 50 mg PO BID 05/07/22 05/11/22 Unk Otc Allergy Med 1 tab PO DAILY PRN 05/07/22 05/11/22 Previous Rx's Medication Instructions Recorded Ibuprofen [Motrin] 600 mg PO Q8HR PRN #20 tab 10/06/23 Phenazopyridine [Pyridium] 100 mg PO TID PRN #12 tablet 10/06/23 Allergies Allergy/AdvReac Type Severity Reaction Status Date / Time gluten Allergy CELIAC Verified 05/11/22 08:54 Sulfa (Sulfonamide Allergy Rash/Hives Verified 05/11/22 08:54 Antibiotics) wheat Allergy CELIAC Verified 05/11/22 08:54 Review of Systems ROS Statement: Those systems with pertinent positive or pertinent negative responses have been documented in the HPI. ROS Other: All systems not noted in ROS Statement are negative. Past Medical History Past Medical History: GERD/Reflux Additional Past Medical History / Comment(s): Gestational diabetes, hx of kidney stones. CELIAC DISEASE. PRE AND POST ECLAMPSIA WITH first , migraines. + covid 01/19/22 History of Any Multi-Drug Resistant Organisms: None Reported Past Surgical History: Section, Cholecystectomy, Tubal Ligation Additional Past Surgical History / Comment(s): [place] teeth Past Anesthesia/Blood Transfusion Reactions: Postoperative Nausea & Vomiting (PONV) Past Psychological History: Anxiety Smoking Status: Never smoker - Past Family History Father Family Medical History: Diabetes Mellitus Mother Additional Family Medical History / Comment(s): thyroid removed General Exam Limitations: no limitations General appearance: alert, in distress (acute distress due to pain) Head exam: Present: atraumatic, normocephalic, normal inspection Eye exam: Present: normal appearance, PERRL, EOMI. Absent: scleral icterus, conjunctival injection, periorbital swelling ENT exam: Present: normal exam, mucous membranes moist Neck exam: Present: normal inspection. Absent: tenderness, meningismus, lymphadenopathy Respiratory exam: Present: normal lung sounds bilaterally. Absent: respiratory distress, wheezes, rales, rhonchi, stridor Cardiovascular Exam: Present: regular rate, normal rhythm, normal heart sounds. Absent: systolic murmur, diastolic murmur, rubs, gallop, clicks GI/Abdominal exam: Present: soft, tenderness (suprabupic tenderness to palpation), normal bowel sounds. Absent: distended, guarding, rebound, rigid Extremities exam: Present: normal inspection, full ROM, normal capillary refill. Absent: tenderness, pedal edema, joint swelling, calf tenderness Back exam: Present: normal inspection, CVA tenderness (R) Neurological exam: Present: alert, oriented X3, CN II-XII intact Psychiatric exam: Present: normal affect, normal mood Skin exam: Present: warm, dry, intact, normal color. Absent: rash Course Vital Signs 10/06/23 10/06/23 13:23 15:56 Temperature 98.7 F 98 F Pulse Rate 102 H 79 Respiratory 20 18 Rate Blood Pressure 165/106 141/88 O2 Sat by Pulse 98 100 Oximetry Medical Decision Making - Medical Decision Making Was pt. sent in by a medical professional or institution (, PA, GLASS CLEANING MACHINE TENDER, urgent care, hospital, or longterm...) When possible be specific @ -No Did you speak to anyone other than the patient for history (EMS, parent, family, police, friend...)? What history was obtained from this source @ -No Did you review nursing and triage notes (agree or disagree)? Why? @ -I reviewed and agree with nursing and triage notes Were old charts reviewed (outside hosp., previous admission, EMS record, old EKG, old radiological studies, urgent care reports/EKG's, longterm records)? Report findings @ -No old charts were reviewed Differential Diagnosis (chest pain, altered mental status, abdominal pain women, abdominal pain men, vaginal bleeding, weakness, fever, dyspnea, syncope, headache, dizziness, GI bleed, back pain, seizure, CVA, palpatations, mental health, musculoskeletal)? @ -Differential Abdominal Pain Women: Appendicitis, Cholecystitis, diverticulosis, ischemic bowel, pancreatitis, hepatitis, UTI, gastroenteritis, AAA, incarcerated hernia, bowel obstruction, constipation, inflammatory bowel, hepatitis, peptic ulcer disease, splenic infarction, perforated viscus, vulvitis, ovarian torsion, PID, kidney stone, placenta abruption, this is not meant to be an all-inclusive list EKG interpreted by me (3pts min.). @ -None X-rays interpreted by me (1pt min.). @ -None done CT interpreted by me (1pt min.). @ -CT abdomen pelvis without contrast reveals a 5.2 mm stone resulting in right- sided hydronephrosis and hydroureter. U/S interpreted by me (1pt. min.). @ -None done What testing was considered but not performed or refused? (CT, X-rays, U/S, labs)? Why? @ -None What meds were considered but not given or refused? Why? @ -None Did you discuss the management of the patient with other professionals (stuart schaefer i.e. , PA, GLASS CLEANING MACHINE TENDER, lab, RT, psych nurse, social insurance analyst, refund specialist, teacher, safety officer, [employer])? Give summary @ -No Was smoking cessation discussed for >3mins.? @ -No Was critical care preformed (if so, how long)? @ -No Were there social determinants of health that impacted care today? How? (Homelessness, low income, unemployed, alcoholism, drug addiction, transportation, low edu. Level, literacy, decrease access to med. care, alf, rehab)? @ -No Was there de-escalation of care discussed even if they declined (Discuss DNR or withdrawal of care, Hospice)? DNR status @ -No What co-morbidities impacted this encounter? (DM, HTN, Smoking, COPD, CAD, Cancer, CVA, ARF, Chemo, Hep., AIDS, mental health diagnosis, sleep apnea, morbid obesity)? @ -None Was patient admitted / discharged? Hospital course, mention meds given and route, prescriptions, significant lab abnormalities, going to OR and other pertinent info. @ -Discharged. 37-year-old female chief complaint of flank and suprapubic pain. Patient given IV fluids and dose of pain medication for relief. CT abdomen pelvis without contrast reveals a 5.2 mm stone resulting in right-sided hydronephrosis and hydroureter. Findings with the patient and informed her that the stone will be able to pass on its own. Patient will be prescribed Flomax, Azo, and given starter pack of pain medication to pass stone. Patient instruc sandhya to follow-up with care provider in the next 7 to 14 days. I discussed this case with my attending, Dr. altman, agreeable with plan for discharge Undiagnosed new problem with uncertain prognosis? @ -No Drug Therapy requiring intensive monitoring for toxicity (Heparin, Nitro, Insulin, Cardizem)? @ -No Were any procedures done? @ -No Diagnosis/symptom? @ -flank pain, nephrolithiasis Acute, or Chronic, or Acute on Chronic? @ -Acute Uncomplicated (without systemic symptoms) or Complicated (systemic symptoms)? @ -Complicated Side effects of treatment? @ -No Exacerbation, Progression, or Severe Exacerbation? @ -No Poses a threat to life or bodily function? How? (Chest pain, USA, MD, pneumonia, PE, COPD, DKA, ARF, appy, cholecystitis, CVA, Diverticulitis, Homicidal, Suicidal, threat to staff... and all critical care pts) @ -No - Lab Data Result diagrams: 10/06/23 13:55 10/06/23 13:55 Lab Results 10/06/23 10/06/23 10/06/23 Range/Units 13:55 13:55 13:55 WBC 9.6 (3.8-10.6) k/uL RBC 4.58 (3.80-5.40) m/uL Hgb 13.9 (11.4-16.0) gm/dL Hct 41.4 (34.0-46.0) % MCV 90.5 (80.0-100.0) fL MCH 30.4 (25.0-35.0) pg MCHC 33.6 (31.0-37.0) g/dL RDW 14.5 (11.5-15.5) % Plt Count 231 (150-450) k/uL MPV 7.9 Neutrophils % 81 % Lymphocytes % 12 % Monocytes % 4 % Eosinophils % 2 % Basophils % 0 % Neutrophils # 7.7 (1.3-7.7) k/uL Lymphocytes # 1.2 (1.0-4.8) k/uL Monocytes # 0.4 (0-1.0) k/uL Eosinophils # 0.1 (0-0.7) k/uL Basophils # 0.0 (0-0.2) k/uL Sodium 138 (137-145) mmol/L Potassium 3.7 (3.5-5.1) mmol/L Chloride 112 H (98-107) mmol/L Carbon Dioxide 16 L (22-30) mmol/L Anion Gap 10 mmol/L BUN 18 H (7-17) mg/dL Creatinine 1.31 H (0.52-1.04) mg/dL Est GFR (CKD-EPI)AfAm 59 (>60 ml/min/1.73 sqM) Est GFR (CKD-EPI)NonAf 51 (>60 ml/min/1.73 sqM) Glucose 115 H (74-99) mg/dL Calcium 9.7 (8.4-10.2) mg/dL Total Bilirubin 0.7 (0.2-1.3) mg/dL AST 28 (14-36) U/L ALT 28 (4-34) U/L Alkaline Phosphatase 77 (38-126) U/L Total Protein 6.8 (6.3-8.2) g/dL Albumin 3.9 (3.5-5.0) g/dL Urine Color Colorless Urine Appearance Clear (Clear) Urine pH 5.5 (5.0-8.0) Ur Specific [place] 1.020 (1.001-1.035) Urine Protein Trace H (Negative) Urine Glucose (UA) Negative (Negative) Urine Ketones Negative (Negative) Urine Blood Moderate H (Negative) Urine Nitrite Negative (Negative) Urine Bilirubin Negative (Negative) Urine Urobilinogen <2.0 (<2.0) mg/dL Ur Leukocyte Esterase Trace H (Negative) Urine RBC 17 H (0-5) /hpf Urine WBC 11 H (0-5) /hpf Ur Squamous Epith Cells 3 (0-4) /hpf Urine Mucus Rare H (None) /hpf Disposition Clinical Impression: Nephrolithiasis Narrative: Please return to the Emergency Department if symptoms worsen or any other concerns. Disposition: HOME SELF-CARE Condition: Good Instructions (If sedation given, give patient instructions): Kidney Stones (ED) Prescriptions: Ibuprofen [Motrin] 600 mg PO Q8HR PRN #20 tab PRN Reason: Pain Phenazopyridine [Pyridium] 100 mg PO TID PRN #12 tablet PRN Reason: pain Is patient prescribed a controlled substance at d/c from ED?: No Referrals: Anna Calderon MD [Primary Care Provider] - 1-2 days Time of Disposition: 15:26
[2023-10-06] MEDS: SODIUM CHLORIDE 0.9% 1,000 ML IV STA (14:03)
[2023-10-06] MEDS: MORPHINE SULFATE 2 MG/ML SYRINGE IVP ONE (14:04)
[2023-10-06 14:14] LABS: Basophils % (A) 0 %; Eosinophils # (A) 0.1 k/uL (0-0.7); Eosinophils % (A) 2 %; HCT 41.4 % (34.0-46.0); HGB 13.9 gm/dL (11.4-16.0); Lymphocytes # (A) 1.2 k/uL (1.0-4.8); Lymphocytes % (A) 12 %; MCH 30.4 pg (25.0-35.0); MCHC 33.6 g/dL (31.0-37.0); MCV 90.5 fL (80.0-100.0); Mean Platelet Volume 7.9; Monocytes # (A) 0.4 k/uL (0-1.0); Monocytes % (A) 4 %; Neutrophils # (A) 7.7 k/uL (1.3-7.7); Neutrophils % (A) 81 %; Platelet Count 231 k/uL (150-450); RBC 4.58 m/uL (3.80-5.40); RDW 14.5 % (11.5-15.5); WBC 9.6 k/uL (3.8-10.6)
[2023-10-06 14:32] LABS: ALT 28 U/L (4-34); AST 28 U/L (14-36); African American GFR (CKD) 59 (>60 ml/min/1.73 sqM); Albumin 3.9 g/dL (3.5-5.0); Alkaline Phosphatase 77 U/L (38-126); Anion Gap 10 mmol/L; Blood Urea Nitrogen 18 mg/dL (7-17); Calcium 9.7 mg/dL (8.4-10.2); Carbon Dioxide 16 mmol/L (22-30); Chloride 112 mmol/L (98-107); Glucose 115 mg/dL (74-99); Non-African American GFR(CKD) 51 (>60 ml/min/1.73 sqM); Potassium 3.7 mmol/L (3.5-5.1); Sodium 138 mmol/L (137-145); Total Bilirubin 0.7 mg/dL (0.2-1.3); Total Protein 6.8 g/dL (6.3-8.2)
[2023-10-06 14:57] LABS: Appearance,Urine Clear (Clear); Bilirubin,Urine Negative (Negative); Blood,Urine Moderate (Negative); Color,Urine Colorless; Glucose,Urine (UA) Negative (Negative); Ketones,Urine Negative (Negative); Leukocyte Esterase,Urine Trace (Negative); Mucus,Urine Rare /hpf; Nitrite,Urine Negative (Negative); PH, Urine 5.5 (5.0-8.0); Protein,Urine Trace (Negative); RBC,Urine 17 /hpf (0-5); Squamous Epithelial Cell,Urine 3 /hpf (0-4); Urobilinogen,Urine <2.0 mg/dL (<2.0); WBC,Urine 11 /hpf (0-5)
--- NOTE | 2023-10-06 14:57 | CT ---
EXAMINATION TYPE: CT abdomen pelvis wo con DATE OF EXAM: 10/06/2023 COMPARISON: 11/01/2011 HISTORY: right flank pain, hematuria CT DLP: 816.5 mGycm Automated exposure control for dose reduction was used. TECHNIQUE: Helical acquisition of images was performed from the lung bases through the pelvis. FINDINGS: The lung bases are clear. There is surgical absence of the gallbladder. There is no organomegaly involving the solid visceral organs of the upper abdomen. There is marked right-sided hydronephrosis and hydroureter to the level of the right UVJ where there is an obstructing 5.2 mm calculus. There is a 4 mm nonobstructing left renal calculus. Caliber of the abdominal aorta is normal and there is no retroperitoneal adenopathy. No bowel obstruction or inflammation. There is no free intraperitoneal air or fluid. No pelvic mass, free fluid, abscess or adenopathy. The osseous structures are intact. IMPRESSION: 5.2 mm calculus in the right UVJ results in marked right hydronephrosis and hydroureter.
[2023-10-06] MEDS: MORPHINE SULFATE 4 MG/ML SYRINGE IVP STA (15:19)
[2023-10-06] MEDS: ACET/COD 300 MG/30 MG STARTER PACK 6 TAB BTL PO STA (15:53)
[2023-10-06 16:19] VITALS: BP 141/88; PULSE 79; RESP 18; TEMP 98
== END 2023-10-06 15:59 | disposition home or self-care (01) ==
LOC: EC 13:20
DX: N13.2 Hydronephrosis with renal and ureteral calculous obstruction (principal); K21.9 Gastro-esophageal reflux disease without esophagitis; Z79.899 Other long term (current) drug therapy; Z91.018 Allergy to other foods; Z88.2 Allergy status to sulfonamides
CPT/HCPCS: 36415; 80053; 85025; 81001; 87086; 74176; 99284; 96374; 96376; 96361 ×2; J2270 ×2

== ENCOUNTER → 2024-02-16 | Outpatient (CLI) | payer BC ==
--- NOTE | 2024-03-13 11:35 | MM ---
Reason for Exam: Screening (asymptomatic). Baseline mammogram. Patient History: Menarche at age 10. First Full-Term at age 30. Late child-bearing (after 30). Patient has history of breast feeding. Maternal aunt had breast cancer, age 50. Last menstrual period: 01/28/2024 Risk Values: Junior 5 year model risk: 0.8%. NCI Lifetime model risk: 13.6%. Prior Study Comparison: Patient's first Mammogram. Tissue Density: The breasts are heterogeneously dense, which may obscure small masses. Findings: Analyzed By CAD. There are multiple bilateral focal asymmetries present with no priors available to determine stability. 2.8 cm circumscribed isodense nodule posterior upper outer quadrant right breast also present. Additional spot compression views and ultrasound is recommended. No suspicious microcalcification. Overall Assessment: Incomplete: need additional imaging evaluation, BI-RAD 0 Management: Special View Mammogram of both breasts. Diagnostic Breast Ultrasound of both breasts. [facility] will attempt to contact patient to return for supplemental views and ultrasound if indicated. NOTE ON JUNIOR SCORES AND LIFETIME RISK: 1. A Junior score greater than 3% is considered moderate risk. If this is the case, consider specialist referral to assess eligibility for a risk reducing agent. 2. If overall lifetime risk for the development of breast cancer is 20% or higher, the patient may qualify for future screening with alternating mammogram and breast MRI. Electronically signed and approved by: Igor Alejo M.D. Radiologist
== END | disposition home or self-care (01) ==
LOC: RADMAMWWP 12:50
PROVIDERS: ATTEND Family Medicine
DX: Z12.31 Encounter for screening mammogram for malignant neoplasm of breast (principal); R92.333 Mammographic heterogeneous density, bilateral breasts; Z80.3 Family history of malignant neoplasm of breast
CPT/HCPCS: 77067

== ENCOUNTER → 2024-03-22 | Outpatient (CLI) | payer BC ==
--- NOTE | 2024-03-22 14:55 | MM ---
Reason for Exam: Additional evaluation requested from abnormal screening. Last screening mammogram was performed 1 month(s) ago. Patient History: Menarche at age 10. First Full-Term at age 30. Late child-bearing (after 30). Patient has history of breast feeding. Maternal aunt had breast cancer, age 50. Last menstrual period: 03/22/2024 Risk Values: Eduarda 5 year model risk: 0.8%. NCI Lifetime model risk: 13.6%. Prior Study Comparison: 02/16/2024 Bilateral MG screening mammo w CAD, [facility]. Tissue Density: The breasts are heterogeneously dense, which may obscure small masses. Findings: Analyzed By CAD. Persistent oval circumscribed isodense mass posterior upper outer quadrant right breast measuring 3.6 x 1.8 cm. The area of asymmetric density more centrally located on the right at a middle depth on the CC view appears to disperse. On the left breast, the central inner asymmetric density middle to posterior depth on the CC view incompletely disperses. Not clearly identified on the MLO or true lateral view. Further ultrasound evaluation recommended. The area of asymmetric density more anteriorly and centrally in the breast appears to disperse. Overall Assessment: Incomplete: need additional imaging evaluation, BI-RAD 0 Management: Diagnostic Breast Ultrasound of both breasts. Right upper outer quadrant and left upper inner quadrant particular attention 11:00. Electronically signed and approved by: Igor Alejo M.D. Radiologist
--- NOTE | 2024-03-22 15:14 | USB ---
Reason for Exam: Additional evaluation requested from abnormal screening. Patient History: Menarche at age 10. First Full-Term at age 30. Late child-bearing (after 30). Patient has history of breast feeding. Maternal aunt had breast cancer, age 50. Risk Values: Eduarda 5 year model risk: 0.8%. NCI Lifetime model risk: 13.6%. Technique: Method: Targeted. Prior Study Comparison: 02/16/2024 Bilateral MG screening mammo w CAD, [facility]. Findings: The upper outer quadrant of the right breast, the upper inner quadrant of the left breast, the axilla of both breasts and the retroareolar of both breasts were scanned. Targeted ultrasound right breast upper outer quadrant 9:00 to 12:00 including scanning of the subareolar region and axilla. * At the 10:00 position, 10 cm from the nipple, there is a circumscribed oval hypoechoic mass measuring 2.2 x 2.2 x 1.2 cm. This is in comparison to 2.0 x 2.0 x 1.1 cm back in 2020. Tissue sampling is recommended. * At the posterior nipple, there is an oval hypoechoic 1 cm mass which is unchanged from 2020 compatible with a benign etiology. * No other solid or cystic lesion or axillary lymphadenopathy. Targeted ultrasound left breast upper inner quadrant 9:00 to 12:00 including scanning of the subareolar region and axilla. * At the 11:00 position, 4 cm from the nipple, there is a lobulated hypoechoic mass measuring 1.1 x 0.8 x 0.6 cm, possible mammographic correlate for which ultrasound is recommended. * No other solid or cystic lesion or axillary lymphadenopathy. Overall Assessment: Suspicious, BI-RAD 4 Management: Ultrasound Core Biopsy of both breasts. Right dominant 10:00 mass which is minimally larger from 2020. Left 11:00 possible mammographic correlate. Results were given to the patient verbally at the time of exam. Electronically signed and approved by: Igor Alejo M.D. Radiologist
== END | disposition home or self-care (01) ==
LOC: RADMAMWWP 14:17
PROVIDERS: ATTEND Family Medicine
DX: R92.8 Other abnormal and inconclusive findings on diagnostic imaging of breast
CPT/HCPCS: 77062; 77066

== ENCOUNTER → 2024-04-12 | Day surgery (SDC) | payer BC ==
--- NOTE | 2024-04-20 12:44 | MM ---
Reason for Exam: Post Procedure Mammogram. Last screening mammogram was performed less than 1 month ago. Patient History: Menarche at age 10. First Full-Term at age 30. Late child-bearing (after 28). Patient has history of breast feeding. Maternal aunt had breast cancer, age 50. Risk Values: Eduarda 5 year model risk: 0.8%. NCI Lifetime model risk: 13.6%. Prior Study Comparison: 02/16/2024 Bilateral MG screening mammo w CAD, [facility]. 03/22/2024 Bilateral MG 3D work up w/cad CHRISTINE, [facility]. Tissue Density: The breasts are heterogeneously dense, which may obscure small masses. Pathology Results: Results pending. Pathology Description: Location: 10 o'clock. Marker Left Behind. Needle Type: Mammotome Cores: 6 Skin Nicks: 1 Gauge: 13 The procedure of ultrasound guided core biopsy was explained to the patient. Benefits, alternatives, and risks were discussed. An informed consent was then obtained. A timeout was performed. The patient was placed in supine positioning for imaging and for the procedure. The overlying skin was prepped and draped in usual sterile fashion. Lidocaine was used as anesthetic into the skin and subcutaneous tissue up to area of concern in the left breast. A small skin jenelle was made with surgical scalpel. Under ultrasound guidance, a 12-gauge vacuum assisted biopsy gun device was used to obtain 5 core samples. A biopsy clip was left in lesion. Hydromark butterfly core marker was placed. The patient tolerated the procedure well without any immediate complication. The patient was kept in the radiology department for short stay after the procedure and then discharged home in stable condition. Postprocedure mammogram: The patient was transferred to mammography for physician ordered post procedure mammogram for clip placement verification. Clip placement appears appropriate. Impression: Successful ultrasound guided core biopsy of area of concern in the left breast, full pathology results to follow. Recommendations: 1. Recommendations are pending pathology results. [facility], , 04/13/2024 4:13 PM The procedure of ultrasound guided core biopsy was explained to the patient. Benefits, alternatives, and risks were discussed. An informed consent was then obtained. A timeout was performed. The patient was placed in supine positioning for imaging and for the procedure. The overlying skin was prepped and draped in usual sterile fashion. Lidocaine was used as anesthetic into the skin and subcutaneous tissue up to area of concern in the right breast. A small skin jenelle was made with surgical scalpel. Under ultrasound guidance, a 12-gauge vacuum assisted biopsy gun device was used to obtain 6 core samples. A biopsy clip was left in lesion. Hydromark wing core marker was placed. The patient tolerated the procedure well without any immediate complication. The patient was kept in the radiology department for short stay after the procedure and then discharged home in stable condition. Postprocedure mammogram: The patient was transferred to mammography for physician ordered post procedure mammogram for clip placement verification. Clip placement appears appropriate. Impression: Successful ultrasound guided core biopsy of area of concern in the right breast, full pathology results to follow. Recommendations: 1. Recommendations are pending pathology results. [facility], , 04/13/2024 4:16 PM. Pathology Results: Result: Benign, Fibroadenoma. Pathology and radiology were reviewed. Findings are concordant. A. LEFT BREAST, 11:00, ULRASOUND GUIDED CORE BIOPSY: Sclerotic fibroadenoma. B. RIGHT BREAST, 10:00, ULTRASOUND GUIDED CORE BIOPSY: Fibroadenoma. Overall Assessment: Benign Assessment: MG diagnostic mammo BI wo CAD - Bilateral: Benign, BI-RAD 2. Management: Diagnostic Breast Ultrasound of both breasts in 6 months. Electronically signed and approved by: Neftaly Rivera D.O. Radiologis
== END ==
LOC: RADUSWWP 09:48
PROVIDERS: ATTEND Surgery
DX: D24.2 Benign neoplasm of left breast (principal); D24.1 Benign neoplasm of right breast
CPT/HCPCS: 88305; 77066; 19083; 19084; A4648